=== PATIENT | female | born 1945 ===

== ENCOUNTER 2016-09-03 12:48 | Inpatient (IN) | payer MEDICAID, MEDICARE ==
[2016-09-03 12:48] VITALS: BMI 32.3
[2016-09-03 13:38] LABS: ADD MANUAL DIFF? NO
[2016-09-03 13:41] LABS: BASO # 0.04 K/mm3 (0.0-2.0); BASO % 0.5 % (0.0-3.0); EOS # 0.6 (0.0-0.7); EOS % 6.8 % (1.5-5.0); GRAN % 62.7 % (50.0-68.0); HEMATOCRIT 33.3 % (36.0-48.0); LYMPH # 1.6 (1.2-3.4); MEAN CELL VOLUME 80.4 fL (80.0-105.0); MEAN CORPUSCULAR HEMOGLOBIN 29.2 pg (25.0-35.0); MEAN CORPUSCULAR HGB CONC 36.3 g/dl (31.0-37.0); MEAN PLATELET VOLUME 10.2 fl (7.0-11.0); MONO # 0.8 (0.1-0.6); PLATELET COUNT 172 10^3/uL (120.0-450.0); RED CELL DISTRIBUTION WIDTH 12.6 % (11.5-14.5); WHITE BLOOD COUNT 8.1 10^3/ul (4.5-11.0)
[2016-09-03 13:52] LABS: ALB/GLOB RATIO 1.3 (1.1-1.8); ALKALINE PHOSPHATASE 65 U/L (38-133); ALT/SGPT 37 U/L (7-56); AST/SGOT 45 U/L (15-39); BILIRUBIN,TOTAL 0.8 mg/dL (0.2-1.3); BLOOD UREA NITROGEN 41 mg/dL (7-21); CALCIUM 9.5 mg/dL (8.4-10.5); CARBON DIOXIDE 24 mmol/L (21-33); CHLORIDE 83 mmol/L (98-107); GFR AFRICAN-AMERICAN 54; GLUCOSE,RANDOM 99 mg/dL (70-110); INR 1.03 (0.93-1.08); MAGNESIUM 1.7 mg/dL (1.7-2.2); PARTIAL THROMBOPLASTIN TIME 28.7 Seconds (23.7-30.8); POTASSIUM 4.2 mmol/L (3.6-5.0); TOTAL PROTEIN 8.1 g/dL (5.8-8.3)
[2016-09-03 13:59] LABS: SODIUM 118 mmol/L (132-148)
--- NOTE | 2016-09-03 14:00 | RAD ---
HISTORY: Weakness COMPARISON: 12/07/2015. FINDINGS: LUNGS: The lungs are clear. PLEURA: No significant pleural effusion identified, no pneumothorax apparent. CARDIOVASCULAR: Normal. OSSEOUS STRUCTURES: No significant abnormalities. VISUALIZED UPPER ABDOMEN: Normal. OTHER FINDINGS: None. IMPRESSION: No active pulmonary disease.
--- NOTE | 2016-09-03 14:02 | ED PDOC ---
Arrival/HPI - General Chief Complaint: Dizziness/Lightheaded Time Seen by Provider: 09/03/16 12:49 Historian: Patient - History of Present Illness Narrative History of Present Illness (Text): 09/03/16 13:06 A 70 year old female with a medical history of hypertension presents to the emergency department with severe right leg cramping, which began earlier today. Patient states she had diarrhea once today and has felt weak for last few days. She denies any headaches, abdominal pain, fever, or any other symptoms at this time. PMD: Dr. Jay Time/Duration: Prior to Arrival (Earlier today ) Symptom Onset: Sudden Symptom Course: Unchanged Activities at Onset: Rest Context: Home Past Medical History - Provider Review Nursing Documentation Reviewed: Yes - Infectious Disease Hx of Infectious Diseases: None - Tetanus Immunization Tetanus Immunization: Unknown - Cardiac Hx Cardiac Disorders: Yes Hx Hypertension: Yes Hx Pacemaker: No - Pulmonary Hx Respiratory Disorders: No - Neurological Hx Neurological Disorder: No Hx Paralysis: No - HEENT Hx HEENT Disorder: No - Renal Hx Renal Disorder: No - Endocrine/Metabolic Hx Endocrine Disorders: No - Hematological/Oncological Hx Blood Disorders: No Hx Blood Transfusions: No Hx Blood Transfusion Reaction: No - Integumentary Hx Dermatological Disorder: No - Musculoskeletal/Rheumatological Hx Musculoskeletal Disorders: No - Gastrointestinal Hx Gastrointestinal Disorders: No - Genitourinary/Gynecological Hx Genitourinary Disorders: No - Psychiatric Hx Psychophysiologic Disorder: No Hx Depression: No Hx Emotional Abuse: No Hx Physical Abuse: No Hx Substance Use: No - Surgical History Hx Hysterectomy: Yes - Anesthesia Hx Anesthesia: No Hx Anesthesia Reactions: No Hx Malignant Hyperthermia: No - Suicidal Assessment Feels Threatened In Home Enviroment: No Family/Social History - Physician Review Nursing Documentation Reviewed: Yes Family/Social History: Unknown Family HX Smoking Status: Never Smoked Hx Alcohol Use: No (SOCIAL) Hx Substance Use: No Allergies/Home Meds Allergies/Adverse Reactions: Allergies No Known Allergies Allergy (Verified 09/03/16 12:58) Home Medications: Home Meds Medication Instructions Recorded Confirmed diltiaZEM [Cardizem] 120 mg PO DAILY 12/19/15 12/19/15 Review of Systems - Physician Review All systems were reviewed & negative as marked: Yes - Review of Systems Constitutional: Other (general weakness ). absent: Fevers Eyes: Normal ENT: Normal Respiratory: absent: SOB Cardiovascular: absent: Chest Pain Gastrointestinal: Diarrhea. absent: Abdominal Pain, Nausea, Vomiting Musculoskeletal: Other (Right leg cramps ) Neurological: absent: Headache Physical Exam Vital Signs Temp Pulse Resp BP Pulse Ox 09/03/16 17:00 62 18 128/65 98 09/03/16 15:08 60 18 146/77 98 09/03/16 12:58 97.5 F L 59 L 16 142/92 H 95 Temperature: Afebrile Blood Pressure: Normal Pulse: Bradycardic Respiratory Rate: Normal Appearance: Positive for: Well-Appearing, Non-Toxic, Comfortable Pain Distress: None Mental Status: Positive for: Alert and Oriented X 3 Finger Stick Blood Glucose: 99 - Systems Exam Head: Present: Atraumatic, Normocephalic Pupils: Present: PERRL Extroacular Muscles: Present: EOMI Conjunctiva: Present: Normal Mouth: Present: Moist Mucous Membranes Neck: Present: Normal Range of Motion Respiratory/Chest: Present: Clear to Auscultation, Good Air Exchange. No: Respiratory Distress, Accessory Muscle Use Cardiovascular: Present: Regular Rate and Rhythm, Normal S1, S2. No: Murmurs Abdomen: Present: Normal Bowel Sounds. No: Tenderness, Distention, Peritoneal Signs Back: Present: Normal Inspection Upper Extremity: Present: Normal Inspection. No: Cyanosis, Edema Lower Extremity: Present: Normal Inspection. No: Edema Neurological: Present: GCS=15, CN II-XII Intact, Speech Normal Skin: Present: Warm, Dry, Normal Color. No: Rashes Psychiatric: Present: Alert, Oriented x 3, Normal Insight, Normal Concentration Medical Decision Making ED Course and Treatment: Impression: A 70 year old female complains of right leg cramps. Differential Diagnosis included but are not limited to: r/o metabolic, dvt, etiology Plan: -- EKG -- Chest X-ray -- Ultrasound of Right Lower Extremity -- Labs -- Sodium Chloride -- Reassess and disposition Prior Visits: Notes and results from previous visits were reviewed. Patient was last seen in the Emergency department on 12/19/15 for high blood pressure and discharged home. Progress Notes: EKG: Ordered, reviewed, and independently interpreted the EKG. Rate : 56 BPM Rhythm : NSR Interpretation : No ST/T wave changes Ultrasound Right Lower Left Extremity [employer] Installer : Uriel Cronin MD IMPRESSION: No sonographic evidence for deep venous thrombosis in the visualized segments of both lower extremities. Chest X-ray [employer] Pool Heating Installer: Dr. Dianna Hernandez MD IMPRESSION: No active pulmonary disease 09/03/16 14:38 Patient now states she is taking a herbal dietary supplement, ?diuretic Dr. yu accepts patient . dr reed bedside Recommends fluid bolus, repeat chemistry, if uptrending stable for tele. morphine dosed for leg cramps 09/03/16 15:17 09/03/16 17:24 repeat chem shows na 121. discussed with dr luong. not icu candidate. - Lab Interpretations Lab Results: 09/03/16 13:36 09/03/16 16:51 Lab Results 09/03/16 16:51: Sodium 121 L, Potassium 4.4, Chloride 88 L, Carbon Dioxide 22, Anion Gap 15, BUN 37 H, Creatinine 1.0, Est GFR ( Amer) > 60, Est GFR ( Non-Af Amer) 55, Random Glucose 97, Uric Acid 7.5 H, Calcium 9.1 09/03/16 16:15: Urine Osmolality 307, Ur Random Sodium 35 09/03/16 16:15: Urine Color Cancelled, Urine Appearance Cancelled, Urine pH Cancelled, Ur Specific [place] Cancelled, Urine Protein Cancelled, Urine Glucose (UA) Cancelled, Urine Ketones Cancelled, Urine Blood Cancelled, Urine Nitrate Cancelled, Urine Bilirubin Cancelled, Urine Urobilinogen Cancelled, Ur Leukocyte Esterase Cancelled 09/03/16 15:10: Urine Color Light yellow, Urine Appearance Clear, Urine pH 6.5, Ur Specific [place] 1.010, Urine Protein Trace H, Urine Glucose (UA) Negative, Urine Ketones Negative, Urine Blood Negative, Urine Nitrate Negative, Urine Bilirubin Negative, Urine Urobilinogen 0.2, Ur Leukocyte Esterase Trace H, Urine RBC Negative, Urine WBC 0 - 2, Ur Epithelial Cells 4 - 5, Urine Bacteria Mod 09/03/16 13:36: Serum Osmolality 263 L 09/03/16 13:36: Sodium 118 L*, Potassium 4.2, Chloride 83 L, Carbon Dioxide 24, Anion Gap 15, BUN 41 H, Creatinine 1.2, Est GFR ( Amer) 54, Est GFR (Non- Af Amer) 44, Random Glucose 99, Calcium 9.5, Magnesium 1.7, Total Bilirubin 0.8 , AST 45 H, ALT 37, Alkaline Phosphatase 65, Lactate Dehydrogenase 445, Total Creatine Kinase 358 H, CK-MB (CK-2) 0.4, CK-MB (CK-2) % Cancelled, Troponin I < 0.01, Total Protein 8.1, Albumin 4.6, Globulin 3.5, Albumin/Globulin Ratio 1.3 09/03/16 13:36: PT 11.1, INR 1.03, APTT 28.7 09/03/16 13:36: WBC 8.1, RBC 4.14, Hgb 12.1, Hct 33.3 L, MCV 80.4, MCH 29.2, MCHC 36.3, RDW 12.6, Plt Count 172, MPV 10.2, Gran % 62.7, Lymph % (Auto) 20.0 L , [place] % (Auto) 10.0 H, Eos % (Auto) 6.8 H, Baso % (Auto) 0.5, Gran # 5.10, Lymph # 1.6, [place] # 0.8 H, Eos # 0.6, Baso # 0.04 09/03/16 13:01: POC Glucose (mg/dL) 99 I have reviewed the lab results: Yes - RAD Interpretation Radiology Orders: 09/03/16 13:09 CHEST PORTABLE [RAD] Stat DUPLEX LOWER EXTRM VEIN BILAT [US] Stat - EKG Interpretation Interpreted by ED Physician: Yes Type: 12 lead EKG - Medication Orders Current Medication Orders: Sodium Chloride (Sodium Chloride 0.9%) 1,000 mls @ 100 mls/hr IV .Q10H YURIDIA Last Admin: 09/03/16 14:19 Dose: 100 mls/hr Discontinued Medications Sodium Chloride (Sodium Chloride 0.9%) 1,000 mls @ 999 mls/hr IV .Q1H1M STA Stop: 09/03/16 15:45 Last Admin: 09/03/16 15:03 Dose: 999 mls/hr Morphine Sulfate (Morphine) 4 mg IVP STAT STA Stop: 09/03/16 14:54 Last Admin: 09/03/16 15:03 Dose: 4 mg - Scribe Statement The provider has reviewed the documentation as recorded by the [employer] training under [facility] Provider Scribe Attestation: All medical record entries made by the Scribe were at my direction and personally dictated by me. I have reviewed the chart and agree that the record accurately reflects my personal performance of the history, physical exam, medical decision making, and the department course for this patient. I have also personally directed, reviewed, and agree with the discharge instructions and disposition. Disposition/Present on Arrival - Present on Arrival Any Indicators Present on Arrival: No History of DVT/PE: No History of Uncontrolled Diabetes: No Urinary Catheter: No History of Decub. Ulcer: No History Surgical Site Infection Following: None - Disposition Have Diagnosis and Disposition been Completed?: Yes Diagnosis: Hyponatremia Disposition: HOSPITALIZED Disposition Time: 17:42 Condition: STABLE Referrals: Prince Yu DO [Primary Care Provider] - Follow up with primary
[2016-09-03 14:05] LABS: TROPONIN I < 0.01 ng/mL
[2016-09-03] MEDS: Sodium Chloride 0.9% 1,000 ML IV SCH (14:19)
--- NOTE | 2016-09-03 14:37 | US ---
HISTORY: Leg pain and swelling. Evaluate for DVT PHYSICIAN(S): Uriel Lynn MD. TECHNIQUE: Duplex sonography and color-flow Doppler with graded compression were used to evaluate the deep venous systems of both lower extremities. FINDINGS: The visualized deep venous systems of both lower extremities are sonographically normal and compressible. Normal wave forms and augmentation are seen. There is no sonographic evidence for deep venous thrombosis in the visualized segments of both lower extremities. IMPRESSION: No sonographic evidence for deep venous thrombosis in the visualized segments of both lower extremities.
[2016-09-03] MEDS ORDERED: Sodium Chloride 0.9% 1,000 ML IV STA (14:45)
[2016-09-03] MEDS ORDERED: Morphine 4 mg/ml ISec IVP STA (14:53)
[2016-09-03 15:45] LABS: PH,URINE 6.5 (4.7-8.0); URINE BILIRUBIN NEGATIVE (NEGATIVE); URINE BLOOD NEGATIVE (NEGATIVE); URINE GLUCOSE (UA) NEGATIVE (NEGATIVE); URINE KETONE NEGATIVE (NEGATIVE); URINE LEUKOCYTE ESTERASE TRACE Leu/uL (NEGATIVE); URINE PROTEIN TRACE mg/dL (<30 mg/dL); URINE UROBILINOGEN 0.2 E.U./dL (<1 E.U./dL)
[2016-09-03 15:56] LABS: URINE APPEARANCE CLEAR (CLEAR); URINE COLOR LIGHT YELLOW (YELLOW)
--- NOTE | 2016-09-03 16:12 | CP.PCM.CON ---
History of Present Illness - History of Present Illness History of Present Illness: Initial Nephrology Consultation: Assessment: HTN (I 10) euvolemic hyponatremia: likely polydipsia related and contribution by diuretics ?? herbal supplement contribution ex smoker Plan monitor serum Na q 4 hrs. avoid increase in serum Na >6-8 meq/day. oral fluid restriction to 40 ounces/day check urine studies as urine Na, urine Osmol also check TSH, uric acid, serum osmol, lipid Hypertension control with meds as ordered. hold thiazide diuretics Further work up/management as per primary team pt advised to abstain from herbal supplements Thanks for allowing me to participate in care of your patient. Will follow patient with you. Please call if any Qs. d/w daughter bedside Dr Caleb Gonzales Office: [phone] Chief Complaint; leg cramps Reason for consult; hyponatremia HPI: Pt is a 70 y/o F with hx of HTN came with c/o Right leg cramps today. had 1 episode of loose stool this AM. was told that has some dehydration 10 days ago and she has been drinking increased water/fluid. approx 4 L/day. also says taking herbalife shakes to loose weight and has decreased appetite. takes diuretic as well. Quit smoking many years ago. drinks wine socially renal consult for low sodium 118 meq/L Denies chest pain, palpitation, shortness of breath, leg swelling Denies blood or bubbles in urine not on any psych meds. ROS: Constitutional Symptoms: Denies fever. No chills. trying to loose weight Eyes: denies change in vision, denies watery eyes, denies double vision Ears/Nose/Mouth/Throat: Denies Abnormal Taste. No Bad breath no Bad Taste. Cardiovascular: No chest pain. There is no shortness of breath. No palpitations. Pulmonary: No shortness of breath no cough. Gastrointestinal: denies abdominal pain No nausea. No vomiting. had loose stool today. Denies Bleeding Genitourinary: no need to strain when urinating. No increase in urinary frequency. No pain while urinating. Denies blood in urine. Neurological: Denies headaches. no dizziness. no loss of balance. Denies weakness, denies tingling/numbness Dermatological: No Rash or Bruising or ulcers. Psychiatric: Denies Anxiety. No depression. Denies hallucinations. Rheumatological: No joint pain. Denies Joint swelling had Rt leg cramps Endocrine: Denies tiredness/Fatigue denies Heat/Cold Intolerance. Physical Examination: General Appearance: Comfortable, in no acute respiratory distress, co-operative . Vitals reviewed and noted as below Head; Atraumatic, normocephalic ENT: no ulcers no thrush. Tongue is midline. Oropharynx: no rash or ulcers. EYES: Pupils are equal, round and reactive to light accommodation. Eye muscles and extraocular movement intact. Sclera is anicteric. Neck; supple no lymphadenopathy, no thyromegaly or bruit Lungs: Normal respiratory rate/effort. Breath sounds bilateral equal and clear Heart: Normal rate. s1s2 normal. No rub or gallop. Extremities: no edema. No varicose veins Neurological: Patient is alert, awake and oriented to person, place and time. No focal deficit. Strength bilateral appropriate and equal Skin: Warm and dry. Normal turgor. No rash. Palpitation: Normal elasticity for age Abdomen: Abdomen is soft. Bowel sounds +. There is no abdominal tenderness, no guarding/rigidity no organomegaly Psych: normal insight and normal affect/mood MSK: no joint tenderness or swelling. Digits and nails normal, no deformity : kidney or bladder not palpable Labs/imaging/EKG reviewed. Past medical history, past surgical history, family history, social history, allergy reviewed and noted as below Family hx: no hx of CKD. non-contributory Workup UA SG 1.010 CXR: WNL leg USG: no DVT Past Patient History - Infectious Disease Hx of Infectious Diseases: None - Tetanus Immunizations Tetanus Immunization: Unknown - Past Social History Smoking Status: Never Smoked - CARDIAC Hx Cardiac Disorders: Yes Hx Hypertension: Yes Hx Pacemaker: No - PULMONARY Hx Respiratory Disorders: No - NEUROLOGICAL Hx Neurological Disorder: No Hx Paralysis: No - HEENT Hx HEENT Problems: No - RENAL Hx Chronic Kidney Disease: No - ENDOCRINE/METABOLIC Hx Endocrine Disorders: No - HEMATOLOGICAL/ONCOLOGICAL Hx Blood Disorders: No Hx Blood Transfusions: No Hx Blood Transfusion Reaction: No - INTEGUMENTARY Hx Dermatological Problems: No - MUSCULOSKELETAL/RHEUMATOLOGICAL Hx Musculoskeletal Disorders: No - GASTROINTESTINAL Hx Gastrointestinal Disorders: No - GENITOURINARY/GYNECOLOGICAL Hx Genitourinary Disorders: No - PSYCHIATRIC Hx Psychophysiologic Disorder: No Hx Depression: No Hx Emotional Abuse: No Hx Physical Abuse: No Hx Substance Use: No - SURGICAL HISTORY Hx Hysterectomy: Yes - ANESTHESIA Hx Anesthesia: No Hx Anesthesia Reactions: No Hx Malignant Hyperthermia: No Meds Allergies/Adverse Reactions: Allergies Allergy/AdvReac Type Severity Reaction Status Date / Time No Known Allergies Allergy Verified 09/03/16 12:58 - Medications Medications: Current Medications Sodium Chloride (Sodium Chloride 0.9%) 1,000 mls @ 100 mls/hr IV .Q10H YURIDIA Last Admin: 09/03/16 14:19 Dose: 100 mls/hr Results - Vital Signs Recent Vital Signs: Last Vital Signs Temp 97.5 F L 09/03/16 12:58 Pulse 60 09/03/16 15:08 Resp 18 09/03/16 15:08 BP 146/77 09/03/16 15:08 Pulse Ox 98 09/03/16 15:08 - Labs Result Diagrams: 09/03/16 13:36 09/03/16 13:36 Labs: Laboratory Results - last 24 hr 09/03/16 09/03/16 09/03/16 13:01 13:36 13:36 WBC 8.1 RBC 4.14 Hgb 12.1 Hct 33.3 L MCV 80.4 MCH 29.2 MCHC 36.3 RDW 12.6 Plt Count 172 MPV 10.2 Gran % 62.7 Lymph % (Auto) 20.0 L [place] % (Auto) 10.0 H Eos % (Auto) 6.8 H Baso % (Auto) 0.5 Gran # 5.10 Lymph # 1.6 [place] # 0.8 H Eos # 0.6 Baso # 0.04 PT 11.1 INR 1.03 APTT 28.7 Sodium Potassium Chloride Carbon Dioxide Anion Gap BUN Creatinine Est GFR ( Amer) Est GFR (Non-Af Amer) POC Glucose (mg/dL) 99 Random Glucose Calcium Magnesium Total Bilirubin AST ALT Alkaline Phosphatase Lactate Dehydrogenase Total Creatine Kinase CK-MB (CK-2) CK-MB (CK-2) % Troponin I Total Protein Albumin Globulin Albumin/Globulin Ratio Urine Color Urine Appearance Urine pH Ur Specific [place] Urine Protein Urine Glucose (UA) Urine Ketones Urine Blood Urine Nitrate Urine Bilirubin Urine Urobilinogen Ur Leukocyte Esterase 09/03/16 09/03/16 13:36 15:10 WBC RBC Hgb Hct MCV MCH MCHC RDW Plt Count MPV Gran % Lymph % (Auto) [place] % (Auto) Eos % (Auto) Baso % (Auto) Gran # Lymph # [place] # Eos # Baso # PT INR APTT Sodium 118 L* Potassium 4.2 Chloride 83 L Carbon Dioxide 24 Anion Gap 15 BUN 41 H Creatinine 1.2 Est GFR ( Amer) 54 Est GFR (Non-Af Amer) 44 POC Glucose (mg/dL) Random Glucose 99 Calcium 9.5 Magnesium 1.7 Total Bilirubin 0.8 AST 45 H ALT 37 Alkaline Phosphatase 65 Lactate Dehydrogenase 445 Total Creatine Kinase 358 H CK-MB (CK-2) 0.4 CK-MB (CK-2) % Cancelled Troponin I < 0.01 Total Protein 8.1 Albumin 4.6 Globulin 3.5 Albumin/Globulin Ratio 1.3 Urine Color Light yellow Urine Appearance Clear Urine pH 6.5 Ur Specific [place] 1.010 Urine Protein Trace H Urine Glucose (UA) Negative Urine Ketones Negative Urine Blood Negative Urine Nitrate Negative Urine Bilirubin Negative Urine Urobilinogen 0.2 Ur Leukocyte Esterase Trace H
[2016-09-03 16:19] LABS: URINE BACTERIA MOD (NEG); URINE RBC NEGATIVE /hpf (0-2); URINE WBC 0 - 2 /hpf (0-6)
[2016-09-03 17:10] LABS: BLOOD UREA NITROGEN 37 mg/dL (7-21); CALCIUM 9.1 mg/dL (8.4-10.5); CARBON DIOXIDE 22 mmol/L (21-33); CHLORIDE 88 mmol/L (98-107); GFR AFRICAN-AMERICAN > 60; GLUCOSE,RANDOM 97 mg/dL (70-110); POTASSIUM 4.4 mmol/L (3.6-5.0); SODIUM 121 mmol/L (132-148); URIC ACID 7.5 mg/dL (2.5-6.2)
--- NOTE | 2016-09-03 17:28 | CON ---
DATE: 09/03/2016 HISTORY OF PRESENT ILLNESS: The patient seen and examined at bedside. She is a 70-year-old lady with history of hypertension, who was also using some herbal extracts to lose weight recently. She presented with severe right leg cramping , which began earlier today and was found to have hypochloremia and hyponatremia. The patient denies abdominal pain, headache pain, fever or any other symptoms at this time. PAST MEDICAL HISTORY: Hypertension. PAST SURGICAL HISTORY: Hysterectomy. SOCIAL HISTORY: No alcohol or illicit drug abuse. The patient is a lifelong nonsmoker. HOME MEDICATIONS: Cardizem, losartan. ALLERGIES: No known drug allergies. FAMILY HISTORY: Noncontributory. REVIEW OF SYSTEMS: Revealed 12 organ system other than mentioned in history of present illness is negative. PHYSICAL EXAMINATION: VITAL SIGNS: Temperature 97.5, heart rate 59, blood pressure 142/92, respiratory rate 16, oxygen saturation 95% on room air. ENT: Atraumatic. Mucosa dry LUNGS: Clear to auscultation bilaterally. HEART: Regular rate and rhythm. S1, S2 normal. ABDOMEN: Soft, nontender, nondistended. MUSCULOSKELETAL: No C/C/E. NEUROLOGIC: The patient moves extremities spontaneously. SKIN: dry. PSYCHIATRIC: The patient is alert and oriented x 3. LABORATORY DATA: Sodium 118, potassium 4.2, chloride 83, carbon dioxide 24, BUN 41, creatinine 1.2, glucose 99. AST 45, ALT 37. CPK 358. Troponin less than 0.01. WBC 8.1, hemoglobin 12.1, platelet count 172, troponin less than 0.01. Chest x-ray showed no acute cardiopulmonary disease. Her extremity ultrasound showed no sonographic evidence for deep venous thrombosis in the visualized segments of both lower extremities. ASSESSMENT AND PLAN: This is a 70-year-old lady, who presented with hypovolemic hyponatremia (hypochloremia, decreased skin turgor, decreased fluid intake). It appears that the muscle cramps that she has are related to substantial dehydration. I would proceed with crystalloids/ fluid resuscitation and maintaining sodium level above 120. I would repeat BMP once fluid bolus is given. I think that the muscle cramps are related to dehydration and hyponatremia, which is corrected with IV fluids. Urine osmolarity, plasma osmolarity, urine electrolytes should be checked. Nephrology consult would be indicated. I will defer decision about whether or not to rule out comorbidities that may cause hyponatremia to primary medical team, including but not limited to hypothyroidism, nephrotic syndrome, chronic liver disease and chronic heart failure--none of which however would represent hypovolemic hyponatriemia. Addendum: Na 121. Ok to go to tele with slow and gradual Na correction under nephrology service supervision ccm time 40 min Sb Victor MD cc: [id number] TT: 09/03/2016 17:28:01 Confirmation # [id number] Dictation # [id number] ln MTDD
--- NOTE | 2016-09-03 18:39 | HP ---
HISTORY OF PRESENT ILLNESS: I was called by the ER doctor and also the daughter that the patient was in the Emergency Room. She had lightheadedness and dizziness. She comes in with severe cramping of the right lower extremity that started earlier today and then she had diarrhea and came to the Emergency Room. PAST MEDICAL HISTORY: She has a past medical history of hypertension. PAST SURGICAL HISTORY: Had a hysterectomy. FAMILY HISTORY: Hypertension in the family. SOCIAL HISTORY: Never smoked, social drinker. No drugs. ALLERGIES: No known drug allergies. MEDICATIONS: She takes Cardizem 120 daily. REVIEW OF SYSTEMS: She was dizzy and weak. No acute vision changes or hearing changes, no sore throat, no shortness of breath, no chest pain, no palpitations , no cough. There is diarrhea. She has right leg cramps, severe. It is better now with IV fluids. No headache, no dizziness, no skin issues, just weak, not feeling well. PHYSICAL EXAMINATION: VITAL SIGNS: She has a 97.5 temp, 59 pulse, 16 respiratory rate, 142/92 blood pressure, 95% O2 sat on room air. HEENT: Head is atraumatic, normocephalic. Extraocular muscles are intact. Pupils equal, reactive to light and accommodation. Throat moist. NECK: Supple. Thyroid midline. No palpable lymphadenopathy appreciated. HEART: Regular rate. Normal S1, S2. LUNGS: Decreased breath sounds but clear to auscultation bilaterally. GENERAL: She is alert and oriented x 3. ABDOMEN: Soft, nontender, positive bowel sounds, no guarding, no rebound, no CVA tenderness. EXTREMITIES: Have no edema. NEUROLOGIC: GCS is 15. Cranial nerves II-XII grossly intact. Speech is normal. SKIN: Warm and dry. LABORATORY DATA: She is here with a white count of 8.1, hemoglobin 12.1, hematocrit 33.3 and platelets of 172. INR is 1.032. She has a 118 sodium, after aggressive IV fluids up to 121. She is going to go to telemetry. Potassium 4.4, BUN 37, creatinine when she came in. GFR was 44, now up to 55. Sugar is 97. Uric acid 7.5, high. Calcium is 9.1, magnesium 1.5. Total bili is 0.8, AST is 45, ALT is 37, alk phos 65. Lactate dehydrogenase 445. Troponin was less than 0.01, total protein is 8.1, albumin is 4.6, globulin 3.5. Urine is trace leukocytes, moderate bacteria. Urine sodium is 35. On x- ray, she had a chest x-ray; no active disease. ASSESSMENT AND PLAN: She was seen by the hot blast worker, who said no intensive care unit; go to the telemetry. She was seen by the kidney doctor, Dr. Gonzales. She is here for euvolemic hypovolemia, likely polydipsia. She was taking an herbal supplement contribution that could have caused this to be the problem. Will aggressively hydrate, check her labs tomorrow and let her eat. Hopefully, the sodium will come up. Continue to watch her blood pressure. Has urinary tract infection, low sodium, syncope, hypovolemia. Will give her some Rocephin for the urinary tract infection, 0.9 normal saline, check her labs tomorrow. Prince Yu DO cc: [id number] TT: 09/03/2016 18:38:43 ln MTDD
[2016-09-04] MEDS: Sodium Chloride 0.9% 1,000 ML IV SCH (00:25)
[2016-09-04 00:49] VITALS: O2SAT 98
[2016-09-04 05:07] LABS: CHOLESTEROL 131 mg/dL (130-200)
--- NOTE | 2016-09-04 08:34 | PN ---
DATE: 09/04/2016 She is resting comfortably in bed. The IV fluids are running. She is eating okay. She can walk to the bathroom okay. No more dizziness or lightheadedness. She is currently on Rocephin and IV fluids at 100 mL an hour. PHYSICAL EXAMINATION: VITAL SIGNS: Temp 97.8, 82 pulse, 140/68 blood pressure, 20 respiratory rate, 98% O2 sat on room air. HEAD: Atraumatic, normocephalic. HEART: Regular rate. LUNGS: Decreased breath sounds, but clear. ABDOMEN: Soft, nontender. Positive bowel sounds. EXTREMITIES: Have no edema. MEDICATIONS: She is on the Rocephin and the IV fluids. The Rocephin is for the UTI. She had low sodium. It was as low as 118. She dizziness, near syncope. LABORATORY DATA: She had a 127 sodium. It is getting closer, but not there yet. It is steadily getting better. Her TSH was low at 0.07. I will check another TSH tomorrow. She was never on anything for hyperthyroid or hypothyroid. I will check her TSH tomorrow, check her labs tomorrow. Hopefully, the sodium will improve, and we could probably discharge her tomorrow. So she will stay one more night, as the sodium slowly increases. She is here for hypovolemia, UTI, near syncope. Prince Yu DO cc: [id number] TT: 09/04/2016 08:33:37 Confirmation # [id number] Dictation # [id number] jn MTDD
[2016-09-04] MEDS: cefTRIAXone 1 gm 1 GM/100 ML BAG IVPB SCH (10:20)
--- NOTE | 2016-09-04 10:35 | CP.PCM.PN ---
Subjective - Date & Time of Evaluation Date of Evaluation: 09/04/16 Time of Evaluation: 10:29 - Subjective Subjective: Follow up Nephrology Consultation: Assessment: HTN (I 10) Hypo-osmolar hyponatremia: likely dehydration as evident by higher BUN/cr and high uric acid and contribution by diuretics ?? herbal supplement contribution: improved with IVF Suppressed TSH ex smoker Plan monitor serum Na q 4 hrs. avoid increase in serum Na >6-8 meq/day. will give D5W @ 100 ml/hr x 5 hrs to bring down Na to 124-126 range by afternoon. then will switch back to NS. Hypertension control with meds as ordered. Avoid thiazide diuretics Further work up/management as per primary team pt advised to abstain from herbal supplements Thanks for allowing me to participate in care of your patient. Will follow patient with you. Please call if any Qs. d/w Dr Gigi Gonzales Office: [phone] Reason for consult; hyponatremia HPI: Pt is a 70 y/o F with hx of HTN came with c/o Right leg cramps today. had 1 episode of loose stool this AM. was told that has some dehydration 10 days ago and also taking herbalife shakes to loose weight and has decreased appetite. takes some diuretic as well. Quit smoking many years ago. drinks wine socially renal consult for low sodium 118 meq/L ROS: Denies chest pain, palpitation, shortness of breath, leg swelling. no further leg cramps. She feels better Physical Examination: General Appearance: Comfortable, in no acute respiratory distress, co-operative . Vitals reviewed and noted as below Lungs: Normal respiratory rate/effort. Breath sounds bilateral equal and clear Heart: Normal rate. s1s2 normal. No rub or gallop. Extremities: no edema. No varicose veins Neurological: Patient is alert, awake and oriented to person, place and time. No focal deficit. Strength bilateral appropriate and equal Skin: Warm and dry. Normal turgor. No rash. Palpitation: Normal elasticity for age Abdomen: Abdomen is soft. Bowel sounds +. There is no abdominal tenderness, no guarding/rigidity no organomegaly Psych: normal insight and normal affect/mood MSK: no joint tenderness or swelling. Digits and nails normal, no deformity : kidney or bladder not palpable Labs/imaging/EKG reviewed. Past medical history, past surgical history, family history, social history, allergy reviewed Family hx: no hx of CKD. non-contributory Workup UA SG 1.010 urine Na 35 urine osmol 307 CXR: WNL leg USG: no DVT uric acid 7.5 TSH 0.07 Serum Osm 263 Objective - Vital Signs/Intake and Output Vital Signs (last 24 hours): Temp Pulse Resp BP Pulse Ox 97.8 F 56 L 20 140/68 98 09/04/16 06:00 09/04/16 06:00 09/04/16 06:00 09/04/16 06:00 09/04/16 06:00 Intake and Output: 09/04/16 09/04/16 06:59 18:59 Intake Total 0 Output Total 3 Balance -3 - Medications Medications: Current Medications Ceftriaxone Sodium (Rocephin 1 Gram Ivpb) 1 gm in 100 mls @ 100 mls/hr IVPB DAILY YURIDIA PRN Reason: Protocol Last Admin: 09/04/16 10:20 Dose: 100 mls/hr Dextrose (Dextrose 5% In Water) 500 mls @ 100 mls/hr IV .Q5H YURIDIA Stop: 09/04/16 14:31 Last Admin: 09/04/16 10:20 Dose: 100 mls/hr - Labs Labs: 09/04/16 08:00 PT 11.1 Seconds (9.9-11.8) 09/03/16 13:36 INR 1.03 (0.93-1.08) 09/03/16 13:36 APTT 28.7 Seconds (23.7-30.8) 09/03/16 13:36
[2016-09-04] MEDS: Metoprolol Succinate 25 mg XL Tab PO SCH ×2 (14:47→18:08)
--- NOTE | 2016-09-05 00:04 | CARD ---
APPROVED REPORT EKG Measurement Heart [id number] <Conclusion> Sinus bradycardia with 1st degree AV block Inferior infarct, age undetermined Abnormal ECG
[2016-09-05 07:08] LABS: ALB/GLOB RATIO 1.2 (1.1-1.8); BILIRUBIN,TOTAL 0.3 mg/dL (0.2-1.3); CALCIUM 9.4 mg/dL (8.4-10.5); HEMATOCRIT 33.6 % (36.0-48.0); MEAN CELL VOLUME 82.8 fL (80.0-105.0); MEAN CORPUSCULAR HEMOGLOBIN 29.6 pg (25.0-35.0); MEAN CORPUSCULAR HGB CONC 35.7 g/dl (31.0-37.0); MEAN PLATELET VOLUME 10.4 fl (7.0-11.0); POTASSIUM 4.1 mmol/L (3.6-5.0); RED CELL DISTRIBUTION WIDTH 13.2 % (11.5-14.5); TOTAL PROTEIN 7.8 g/dL (5.8-8.3); WHITE BLOOD COUNT 5.4 10^3/ul (4.5-11.0)
[2016-09-05] MEDS ORDERED: Magnesium Hydroxide Susp 30 ml UD PO ONE (08:18)
[2016-09-05] MEDS: Metoprolol Succinate 25 mg XL Tab PO SCH (10:02)
[2016-09-05] MEDS: cefTRIAXone 1 gm 1 GM/100 ML BAG IVPB SCH (10:03)
--- NOTE | 2016-09-05 10:11 | CON ---
DATE: 09/04/2016 This is a 70-year-old female with past medical history of hypertension and patient was using some her bal extract to lose weight and the patient had severe leg cramping and also found to be hyponatremic. Called to evaluate the patient. at bedside. PAST MEDICAL HISTORY: Of hypertension. PAST SURGICAL HISTORY: Of hysterectomy. SOCIAL HISTORY: Does not smoke. Does not drink. ALLERGIES: No known drug allergies. REVIEW OF SYSTEMS: A 10-point review of system was negative as noted above. PHYSICAL EXAMINATION: HEENT: Normocephalic, atraumatic. NECK: Supple. NEUROLOGIC: Alert, awake, oriented x 3. No aphasia. Cranial nerves II-XII were tested. Pupils equ ally reactive to light. EOM intact. Cerebellar: No facial Alvaro Ha MD cc: [id number] TT: 09/04/2016 19:34:16 Confirmation # [id number] Dictation # [id number] greta
--- NOTE | 2016-09-05 10:55 | CP.PCM.PCO ---
Assessment & Plan - Assessment and Plan (Free Text) Assessment: NEURO COMMUNICATION NOTE: DIZZINESS AND LEGS CRAMPS SECONDARY TO HYPONATREMIA AND DEHYDRATION. -C/W NEPHROLOGY MX FOR HYPONATREMIA AND PT EVALUATION. PLEASE RECONSULT NECESSARY. GRIFFIN RUSSELL.
--- NOTE | 2016-09-05 11:21 | CP.PCM.PN ---
Subjective - Date & Time of Evaluation Date of Evaluation: 09/05/16 Time of Evaluation: 11:19 - Subjective Subjective: Follow up Nephrology Consultation: Assessment: Improved HTN (I 10) Hypo-osmolar hyponatremia: likely dehydration as evident by higher BUN/cr and high uric acid and contribution by diuretics ?? herbal supplement contribution: improved with IVF Suppressed TSH ex smoker Plan serum Na today 131 Hypertension control with meds as ordered. Avoid thiazide diuretics Further work up/management as per primary team pt advised to abstain from herbal supplements Thanks for allowing me to participate in care of your patient. Please call if any Qs. d/w Dr Yu she can be d/c home today from renal perspective. f/up in office with me next thursday to repeat her Na Dr Caleb Gonzales Office: [phone] Reason for consult; hyponatremia HPI: Pt is a 70 y/o F with hx of HTN came with c/o Right leg cramps today. had 1 episode of loose stool this AM. was told that has some dehydration 10 days ago and also taking herbalife shakes to loose weight and has decreased appetite. takes some diuretic as well. Quit smoking many years ago. drinks wine socially renal consult for low sodium 118 meq/L ROS: Denies chest pain, palpitation, shortness of breath, leg swelling. no further leg cramps. She feels better Physical Examination: General Appearance: Comfortable, in no acute respiratory distress, co-operative . Vitals reviewed and noted as below Lungs: Normal respiratory rate/effort. Breath sounds bilateral equal and clear Heart: Normal rate. s1s2 normal. No rub or gallop. Extremities: no edema. No varicose veins Neurological: Patient is alert, awake and oriented to person, place and time. No focal deficit. Strength bilateral appropriate and equal Skin: Warm and dry. Normal turgor. No rash. Palpitation: Normal elasticity for age Abdomen: Abdomen is soft. Bowel sounds +. There is no abdominal tenderness, no guarding/rigidity no organomegaly Psych: normal insight and normal affect/mood MSK: no joint tenderness or swelling. Digits and nails normal, no deformity : kidney or bladder not palpable Labs/imaging/EKG reviewed. Past medical history, past surgical history, family history, social history, allergy reviewed Family hx: no hx of CKD. non-contributory Workup UA SG 1.010 urine Na 35 urine osmol 307 CXR: WNL leg USG: no DVT uric acid 7.5 TSH 0.07 Serum Osm 263 Objective - Vital Signs/Intake and Output Vital Signs (last 24 hours): Temp Pulse Resp BP Pulse Ox 98.9 F 64 20 134/60 98 09/05/16 06:00 09/05/16 10:02 09/05/16 06:00 09/05/16 10:02 09/05/16 06:00 Intake and Output: 09/05/16 09/05/16 06:59 18:59 Intake Total 720 Balance 720 - Medications Medications: Current Medications Diphenhydramine HCl (Benadryl) 25 mg PO HS PRN PRN Reason: Insomnia Last Admin: 09/04/16 22:28 Dose: 25 mg Ceftriaxone Sodium (Rocephin 1 Gram Ivpb) 1 gm in 100 mls @ 100 mls/hr IVPB DAILY YURIDIA PRN Reason: Protocol Last Admin: 09/05/16 10:03 Dose: 100 mls/hr Metoprolol Succinate (Toprol Xl) 12.5 mg PO BRK YURIDIA Last Admin: 09/05/16 10:02 Dose: 12.5 mg - Labs Labs: 09/05/16 06:15 09/05/16 06:15 PT 11.1 Seconds (9.9-11.8) 09/03/16 13:36 INR 1.03 (0.93-1.08) 09/03/16 13:36 APTT 28.7 Seconds (23.7-30.8) 09/03/16 13:36
--- NOTE | 2016-09-05 11:46 | DS ---
She slept well last night. She is feeling well. She is eating a nice big breakfast. She has got go od appetite, but she is constipated. I am going to give her milk of magnesia 30 mL 1 time dose this morning. My plan is to discharge her today. She is excited about that. PHYSICAL EXAMINATION: VITAL SIGNS: Temp 98.8, 58 pulse, 147/74 blood pressure, 20 respiratory rate, 98% O2 sat on room air . HEENT: Head is atraumatic, normocephalic. Throat is moist. NECK: Supple. HEART: Regular rate. LUNGS: Decreased breath sounds, but clear to auscultation. ABDOMEN: Soft, mildly obese. She has bowel sounds, may be full, could be constipated. EXTREMITIES: Have no edema. She gets constipation all the time she tells me. She is going to go home on Toprol, Macrobid. LABORATORIES: Show a 5.4 white count, 12 hemoglobin, 33.6 hematocrit with 169 platelets. Sodium 131 , it is great, 4.1 potassium, BUN 31, creatinine 1.1, better, GFR is 49, sugar is 89, calcium is 9.4, total bili is 0.3, AST is 35, ALT is 33, alk phos 59, total protein 7.8, albumin 4.3, globulin 3.5. Overall, she is doing better. She was here for low sodium, hypovolemia, urinary tract infection and I will see her in the office next week. She is discharged. Prince Yu DO cc: [id number] TT: 09/05/2016 11:45:59 en
[2016-09-05 14:01] VITALS: BP 162/84; PULSE 67; RESP 16; TEMP 97.4
== END 2016-09-05 15:53 | disposition home or self-care (01) | DRG 641 ==
LOC: ED 12:48 → ERH 17:13 → 2RNO 09-04 00:04
PROVIDERS: ADMIT Family Medicine; ATTEND Family Medicine
DX: E87.1 Hypo-osmolality and hyponatremia (principal); E86.0 Dehydration; N39.0 Urinary tract infection, site not specified; E86.1 Hypovolemia; I10 Essential (primary) hypertension; K59.00 Constipation, unspecified; R63.1 Polydipsia; Z90.710 Acquired absence of both cervix and uterus; Z87.891 Personal history of nicotine dependence; Z82.49 Family history of ischemic heart disease and other diseases of the circulatory system

== ENCOUNTER 2016-10-11 11:55 | Observation (INO) | payer OTHER ==
[2016-10-11 12:13] VITALS: BMI 29.6
[2016-10-11 13:10] LABS: BASO # 0.04 K/mm3 (0.0-2.0); BASO % 0.4 % (0.0-3.0); EOS # 0.6 (0.0-0.7); EOS % 5.9 % (1.5-5.0); GRAN % 65.3 % (50.0-68.0); HEMOGLOBIN 11.9 gm/dL (12.0-16.0); LYMPH # 1.9 (1.2-3.4); MEAN CORPUSCULAR HEMOGLOBIN 29.2 pg (25.0-35.0); MEAN CORPUSCULAR HGB CONC 34.8 g/dl (31.0-37.0); MEAN PLATELET VOLUME 10.4 fl (7.0-11.0); MONO # 1.2 (0.1-0.6); MONO % 11.4 % (1.0-6.0); PLATELET COUNT 177 10^3/uL (120.0-450.0); RBC 4.07 10^6/uL (3.5-6.1); RED CELL DISTRIBUTION WIDTH 13.1 % (11.5-14.5); WHITE BLOOD COUNT 10.9 10^3/ul (4.5-11.0)
[2016-10-11 13:33] LABS: ALB/GLOB RATIO 1.1 (1.1-1.8); ALBUMIN 4.7 g/dL (3.0-4.8); CALCIUM 9.1 mg/dL (8.4-10.5); URIC ACID 7.4 mg/dL (2.5-6.2)
--- NOTE | 2016-10-11 14:54 | ED PDOC ---
Arrival/HPI - General Historian: Patient - History of Present Illness Time/Duration: 1 week Symptom Course: Worsening Quality: Aching Severity Level: Mild <Lucy Salmeron - Last Filed: 10/11/16 17:00> <SolisreneaAdam - Last Filed: 10/12/16 07:33> - General Chief Complaint: Lower Extremity Problem/Injury Time Seen by Provider: 10/11/16 12:14 - History of Present Illness Narrative History of Present Illness (Text): 10/11/16 14:50 70-year-old female with a history of kidney disease and gout presents today with pain and swelling and erythema to the left foot. Patient states that she ate shrimp a week ago and the following day she woke up with pain and swelling to the left great toe. Patient states the pain has continued and the erythema has slightly worsened. Patient denies fevers or chills. No medications taken for pain at home. She denies numbness weakness or tingling in the extremity. No other complaints. (Lucy Salmeron) Past Medical History - Provider Review Nursing Documentation Reviewed: Yes - Travel History Have you recently traveled outside [place] w/in the past 3 mons?: No - Infectious Disease Hx of Infectious Diseases: None - Tetanus Immunization Tetanus Immunization: Unknown - Reproductive Menopause: Yes - Cardiac Hx Cardiac Disorders: Yes Hx Hypertension: Yes - Pulmonary Hx Respiratory Disorders: No - Neurological Hx Neurological Disorder: No - HEENT Hx HEENT Disorder: No - Renal Hx Renal Disorder: No - Endocrine/Metabolic Hx Endocrine Disorders: No - Hematological/Oncological Hx Blood Disorders: Yes Other/Comment: Gout - Integumentary Hx Dermatological Disorder: No - Musculoskeletal/Rheumatological Hx Musculoskeletal Disorders: No - Gastrointestinal Hx Gastrointestinal Disorders: No - Genitourinary/Gynecological Hx Genitourinary Disorders: No - Psychiatric Hx Psychophysiologic Disorder: No Hx Depression: No Hx Emotional Abuse: No Hx Physical Abuse: No Hx Substance Use: No - Surgical History Hx Hysterectomy: Yes - Anesthesia Hx Anesthesia: No Hx Anesthesia Reactions: No Hx Malignant Hyperthermia: No - Suicidal Assessment Feels Threatened In Home Enviroment: No <Lucy Salmeron - Last Filed: 10/11/16 17:00> Family/Social History - Physician Review Nursing Documentation Reviewed: Yes Family/Social History: Unknown Family HX Smoking Status: Former Smoker Hx Alcohol Use: No Hx Substance Use: No <MedhatironLucy Benedict - Last Filed: 10/11/16 17:00> Allergies/Home Meds <Kev Salmeronravi Benedict - Last Filed: 10/11/16 17:00> <Adam Cade - Last Filed: 10/12/16 07:33> Allergies/Adverse Reactions: Allergies No Known Allergies Allergy (Verified 10/11/16 12:13) Home Medications: Home Meds Medication Instructions Recorded Confirmed Losartan Potassium 100 mg PO DAILY 09/03/16 10/11/16 Nebivolol [Bystolic] 5 mg PO DAILY 09/03/16 10/11/16 Review of Systems - Review of Systems Constitutional: absent: Fatigue, Fevers Respiratory: absent: SOB, Cough Cardiovascular: absent: Chest Pain, Palpitations Gastrointestinal: absent: Abdominal Pain, Diarrhea, Nausea, Vomiting Musculoskeletal: Arthralgias (Left foot pain) Skin: Rash Neurological: absent: Headache, Dizziness Psychiatric: absent: Anxiety, Depression <Lucy Salmeron - Last Filed: 10/11/16 17:00> Physical Exam Vital Signs Reviewed: Yes Temperature: Afebrile Blood Pressure: Hypertensive Pulse: Regular Respiratory Rate: Normal Appearance: Positive for: Well-Appearing, Non-Toxic, Comfortable Pain Distress: None Mental Status: Positive for: Alert and Oriented X 3 - Systems Exam Head: Present: Atraumatic Mouth: Present: Moist Mucous Membranes Respiratory/Chest: Present: Clear to Auscultation, Good Air Exchange. No: Respiratory Distress, Accessory Muscle Use Cardiovascular: Present: Regular Rate and Rhythm, Normal S1, S2. No: Murmurs Upper Extremity: Present: Normal Inspection, Normal ROM Lower Extremity: Present: NORMAL PULSES, Normal ROM, Swelling, Erythema, Neurovascularly Intact, Capillary Refill < 2 s. No: CALF TENDERNESS, Tenderness (Left foot: There is tenderness noted over the dorsal aspect of the foot at the first MTP. There is erythema and slight edema extending along the dorsal aspect of the foot. Sensation and distal pulses intact Refill less than 2. ), Deformity Neurological: Present: GCS=15, Speech Normal Skin: Present: Warm, Dry Psychiatric: Present: Alert <Lucy Salmeron - Last Filed: 10/11/16 17:00> - PA / SILK SCREEN OPERATOR / Resident Statement MD/DO has reviewed & agrees with the documentation as recorded. <Adam Cade - Last Filed: 10/12/16 07:33> Disposition/Present on Arrival - Present on Arrival Any Indicators Present on Arrival: No History of DVT/PE: No History of Uncontrolled Diabetes: No Urinary Catheter: No History of Decub. Ulcer: No History Surgical Site Infection Following: None - Disposition Have Diagnosis and Disposition been Completed?: Yes Disposition Time: 15:00 Patient Plan: Admission <Lucy Salmeron - Last Filed: 10/11/16 17:00> <Adam Cade - Last Filed: 10/12/16 07:33> - Disposition Diagnosis: Cellulitis of foot, Hyponatremia Disposition: HOSPITALIZED Patient Problems: Current Active Problems Problem Status Onset Cellulitis of foot Acute Hyponatremia Acute Condition: FAIR
[2016-10-11] MEDS ORDERED: Vancomycin 1gm in NS 250ml 1 GM/250 ML BAG IVPB STA (15:09)
[2016-10-11] MEDS ORDERED: Sodium Chloride 0.45% 1,000 ML IV SCH (16:15)
--- NOTE | 2016-10-11 17:22 | RAD ---
PROCEDURE: Left Foot Radiographs. HISTORY: foot pain/swelling/erythema COMPARISON: None. FINDINGS: BONES: No acute fracture dislocation identified however multiple tiny lucencies appear relatively well-circumscribed at the bases of the 4th and 5th metatarsal bones as well as the distal portions of the cuboid and lateral cuneiform bones. These are likely benign. Consider follow-up nuclear bone scan for greater characterization. JOINTS: Moderate hallux valgus deformity SOFT TISSUES: Normal. OTHER FINDINGS: None. IMPRESSION: No acute fracture or dislocation. Cystic lesions at the midfoot as discussed above in the 3rd and 4th metatarsals and cuboid as well as medial cuneiform bone are identified for which follow-up nuclear bone scan is recommended.
[2016-10-11 18:34] VITALS: RESP 20
[2016-10-11] MEDS ORDERED: Pneumococcal 23-Valent Vaccine IM ONE (18:34)
[2016-10-12 07:04] VITALS: BP 134/74; PULSE 54; TEMP 97.8; O2SAT 96
[2016-10-12 07:09] LABS: ALB/GLOB RATIO 1.1 (1.1-1.8); ALBUMIN 3.9 g/dL (3.0-4.8); ALT/SGPT 24 U/L (7-56); AST/SGOT 33 U/L (15-39); BLOOD UREA NITROGEN 22 mg/dL (7-21); CALCIUM 9.1 mg/dL (8.4-10.5); GFR AFRICAN-AMERICAN > 60; GFR NON-AFRICAN AMERICAN 55
[2016-10-12 07:14] LABS: MEAN CELL VOLUME 83.6 fL (80.0-105.0); MEAN CORPUSCULAR HEMOGLOBIN 28.6 pg (25.0-35.0); MEAN CORPUSCULAR HGB CONC 34.2 g/dl (31.0-37.0); MEAN PLATELET VOLUME 10.5 fl (7.0-11.0); RBC 3.85 10^6/uL (3.5-6.1); RED CELL DISTRIBUTION WIDTH 12.9 % (11.5-14.5); WHITE BLOOD COUNT 6.4 10^3/ul (4.5-11.0)
--- NOTE | 2016-10-12 18:40 | HP ---
HISTORY OF PRESENT ILLNESS: I know the patient very well from office. She presented to the emergency room with a week feeling of worsening, aching of her left first toe. She has been eating shrimp lately and since then it has been bothering her. It became red and inflamed and had swelled up. She has not had since 10 years but she has not had shrimp in 10 years. PAST MEDICAL HISTORY: Hypertension, gout. She had hysterectomy. FAMILY HISTORY: No known family history. SOCIAL HISTORY: She is a former smoker. No alcohol. No drugs. ALLERGIES: NO KNOWN DRUG ALLERGIES. MEDICATIONS: She takes losartan, potassium, Bystolic for her blood pressure. REVIEW OF SYSTEMS: No vision change. No hearing changes. No sore throat. No neck pain. No chest pain. No palpitations. No shortness of breath. No coughing. No abdominal pain. No nausea, vomiting, constipation, or diarrhea. She is having a left foot first toe pain, redness and inflammation and swelling. PHYSICAL EXAMINATION: VITAL SIGNS: She has 98 temp, 60 pulse, 139/74 blood pressure, respiratory rate 20. She has 97% O2 sat on room air. HEENT: Head is atraumatic and normocephalic. Extraocular muscles are intact. Pupils equal, reactive to light. Throat is moist. No erythema. GENERAL: She is well appearing, nontoxic, comfortable, alert and oriented to x3. The left foot was giving her heart problems and pain. HEART: Regular rate. Normal S1 and S2. LUNGS: Decreased breath sounds, but clear to auscultation bilaterally. ABDOMEN: Soft and nontender. Positive bowel sounds. EXTREMITIES: There was left foot first toe redness, swelling, tenderness to palpation, difficult to move and put pressure on it, difficult to stand. NEUROLOGIC: GCS is 15. Speech is normal. Cranial nerves II through XII grossly intact. SKIN: Fine, except for the left first toe which is red and inflamed, it is tender. LABORATORY DATA: She had multiple tests done. She had 127 sodium, potassium 4.4, BUN 26, creatinine 1.1, GFR is 49. Sugar is 86, uric acid was high 7.4, calcium is 9.1, total bilirubin is 0.8. AST is 33, ALT is 31, alkaline phosphatase 74. Total protein is 8.9, albumin is 4.7, white count is10.9, hemoglobin is 11.9, hematocrit is 34.2, platelets are 177. She had an x-ray of the left foot which showed benign cystic lucencies, otherwise negative. I made her an inpatient, put her in for cellulitis, low sodium, possible renal insufficiency. We will give her IV 0.9. Her medicine, she had a dose of vancomycin and I added allopurinol. Prince Yu DO
--- NOTE | 2016-10-12 21:55 | CON ---
DATE: 10/12/2016 The patient was seen earlier today in room 360 and bed 1. CHIEF COMPLAINT: Leg infection and foot infection of the left leg from several days. HISTORY OF PRESENT ILLNESS: This is a 70-year-old [facility] who has history of gout and history of hypertension, cataract and history of cataract surgery, , hysterectomy. Has no known allergies who is admitted through the emergency room, was seen by Dr. Adam Cade. The patient had been complaining of left foot pain. Chief complaint was left foot pain and erythema and she had no fevers. No chills. No chest pain. She denied any trauma. PAST MEDICAL HISTORY: Significant for gout, hypertension and cataract. PAST SURGICAL HISTORY: Significant for , hysterectomy and cataract surgery. ALLERGIES: THE PATIENT HAS NO KNOWN ALLERGIES OF ANY ANTIBIOTICS. MEDICATIONS AT HOME: Include the patient to be on Bystolic and losartan. SOCIAL HISTORY: She has not been to [facility] for a year. No exposure to any animals. No pets. She is exposed to a dog rather, only one animal which is a dog. PHYSICAL EXAMINATION VITAL SIGNS: Temperature is 98, blood pressure is 130/70, respiratory rate of 20, and heart rate of 60. HEENT: Unremarkable. NECK: Supple. LUNGS: Decreased breath sounds. HEART: Normal S1 and S2. ABDOMEN: Soft and nontender. No rebound or guarding. EXTREMITIES: Examination of the left foot reveals mild erythema. No tenderness on big toe and no focal tenderness, mild erythema on the dorsal aspect of the left foot. Pulses are intact. Motor function is 5/5. LABORATORY DATA: Reveals a white count of 10.9, hemoglobin of 11 and platelets of 177. Chemistries reveals a creatinine as 1.1, BUN of 26 and sodium of 127. ASSESSMENT AND PLAN: This is a 70[facility] with gout, hypertension, and cataract who was admitted with what appears to be with a left foot erythema and pain with also renal insufficiency with glomerular filtration rate of 55. The patient does have an elevated uric acid of 7.4 and we will treat the patient with Teflaro with the left foot cellulitis and appears the patient states that the erythema has improved with antibiotics received thus far. We will order a sedimentation rate and C-reactive protein. We will treat the patient with Teflaro and follow the patient clinically. Should have podiatry on consult and renal consult has been requested. The patient's x-ray of the foot has been done which showed no acute changes. There is cystic lesion in the mid foot. Should have podiatry on consultation. We will follow closely with you. Srini Paez MD
[2016-10-12] MEDS ORDERED: Ceftaroline 600 MG in Sodium Chloride 0.9% 100 ML IVPB SCH (22:00)
--- NOTE | 2016-10-13 05:48 | DS ---
CHIEF COMPLAINT: "I came to see you this morning." HISTORY OF PRESENT ILLNESS: She was admitted with cellulitis of the toe yesterday which is red, inflamed and tender. She had a dose of allopurinol last night besides vancomycin and IV fluids. She is doing great this morning. Her toe is back to normal. She can stand on it. She can move it. It is not red at all and not swollen at all. I believe this was a gout attack. I am going to discharge her today and change her to observation. She will go home on Bystolic, Cozaar, and allopurinol. I do not think she needs any antibiotics at this time. She will follow up with me in the office in two weeks. I believe this is all gout. PHYSICAL EXAMINATION: VITAL SIGNS: Temperature 97.8, pulse 54, blood pressure 134/74, respiratory rate 20, and 96% saturation on room air. HEENT: Head normocephalic and atraumatic. HEART: Regular rate. LUNGS: Clear to auscultation. ABDOMEN: Soft. EXTREMITIES: No edema, no redness. Good range of motion. Normal feet. She feels back to normal. LABS: She had a 6.4 white count, hemoglobin 11, hematocrit 32.2, platelets 160. Sodium 131, almost normal. Potassium 4.3. BUN is 22. Creatinine is 1. T4 is 55. Sugar is 81, calcium is 9.1, total bili is 0.6, AST is 33, ALT is 24, alkaline phosphatase 52. Albumin is 3.9. MEDICATIONS: She will go home on allopurinol and her medications. She will be seen in the office this week. She will follow up on an outpatient basis here for gout changes to observation status. Prince Yu DO
== END 2016-10-12 12:17 | disposition home or self-care (01) ==
LOC: ED 11:55 → ERH 15:17 → INTOOBSV 15:17 → ERH 15:55 → 3RNO 17:02
PROVIDERS: ADMIT Family Medicine; ATTEND Family Medicine
DX: L03.116 Cellulitis of left lower limb (principal); N28.9 Disorder of kidney and ureter, unspecified; M10.9 Gout, unspecified; I10 Essential (primary) hypertension; E87.1 Hypo-osmolality and hyponatremia; Z87.891 Personal history of nicotine dependence; Z98.49 Cataract extraction status, unspecified eye
CPT/HCPCS: 36415; 73630; 80053; 84550; 85025; 85027; 85651; 86140; 87040; 99285; G0378; J7030

== ENCOUNTER 2017-10-07 18:05 | Emergency (ER) | payer MEDICARE, OTHER ==
[2017-10-07 18:05] VITALS: BMI 29.6
--- NOTE | 2017-10-07 18:32 | ED PDOC ---
Arrival/HPI - General Historian: Patient - History of Present Illness Time/Duration: 1-3 hours Symptom Onset: Sudden Symptom Course: Resolved Activities at Onset: Light Context: Sitting <Nelson Danielle - Last Filed: 10/07/17 20:35> <Iker Quigley DO - Last Filed: 10/07/17 22:44> - General Time Seen by Provider: 10/07/17 18:10 - History of Present Illness Narrative History of Present Illness (Text): 10/07/17 18:29 This is a 71 year old female with PMH of HT and gout presenting to the ED for chest pain that began one hour. Patient was sitting and felt chest pain located centrally along the chest near the sternum. Pain is non radiating, intermittant , 5/10 at worst and pain worsens with touch. She has no associated symptoms. She denies SOB, fevers, chills, nausea, urinary complaints, blood in the stool or urine, headaches, back pain and recent sickness. PMD is Dr. Yu (Nelson Danielle) Past Medical History - Provider Review Nursing Documentation Reviewed: Yes - Infectious Disease Hx of Infectious Diseases: None - Tetanus Immunization Tetanus Immunization: Unknown - Cardiac Hx Cardiac Disorders: Yes Hx Hypertension: Yes - Pulmonary Hx Respiratory Disorders: No - Neurological Hx Neurological Disorder: Yes Hx Dizziness: Yes - HEENT Hx HEENT Disorder: Yes Hx Cataracts: Yes - Renal Hx Renal Disorder: No - Endocrine/Metabolic Hx Endocrine Disorders: No - Hematological/Oncological Hx Blood Disorders: Yes Other/Comment: Gout - Integumentary Hx Dermatological Disorder: No - Musculoskeletal/Rheumatological Hx Musculoskeletal Disorders: Yes Hx Falls: No Hx Gout: Yes - Gastrointestinal Hx Gastrointestinal Disorders: Yes Hx Constipation: Yes - Genitourinary/Gynecological Hx Genitourinary Disorders: Yes Hx Urinary Tract Infection: Yes - Psychiatric Hx Psychophysiologic Disorder: No Hx Substance Use: No - Surgical History Hx Hysterectomy: Yes - Anesthesia Hx Anesthesia: No Hx Anesthesia Reactions: No Hx Malignant Hyperthermia: No - Suicidal Assessment Feels Threatened In Home Enviroment: No <Nelson Danielle - Last Filed: 10/07/17 20:35> Family/Social History - Physician Review Nursing Documentation Reviewed: Yes Family/Social History: Unknown Family HX Smoking Status: Former Smoker Hx Alcohol Use: No Hx Substance Use: No <Nelson Danielle - Last Filed: 10/07/17 20:35> Allergies/Home Meds <Nelson Danielle - Last Filed: 10/07/17 20:35> <Iker Quigley DO - Last Filed: 10/07/17 22:44> Allergies/Adverse Reactions: Allergies No Known Allergies Allergy (Verified 10/07/17 18:12) Home Medications: Home Meds Medication Instructions Recorded Confirmed Aspirin [Adult Low Dose Aspirin EC] 81 mg PO DAILY 10/07/17 10/07/17 Calcium Carbonate/Vitamin D3 1 tab PO BID 10/07/17 10/07/17 [Oysco 500-Vit D3 200 Tablet] Nebivolol [Bystolic] 10 mg PO DAILY 10/07/17 10/07/17 amLODIPine [Norvasc] 5 mg PO DAILY 10/07/17 10/07/17 Review of Systems - Physician Review All systems were reviewed & negative as marked: Yes - Review of Systems Constitutional: Normal. absent: Fevers Eyes: Normal. absent: Vision Changes ENT: Normal. absent: Hearing Changes Respiratory: Normal. absent: SOB, Cough Cardiovascular: Chest Pain. absent: Palpitations, Edema, Orthopnea, Syncope Gastrointestinal: Normal. absent: Abdominal Pain, Constipation, Diarrhea, Nausea, Vomiting, Hematochezia, Hematemesis Genitourinary Female: Normal. absent: Dysuria, Frequency, Hematuria Musculoskeletal: Normal Skin: Normal Neurological: Normal. absent: Headache Endocrine: Normal. absent: Diaphoresis <Nelson Danielle - Last Filed: 10/07/17 20:35> Physical Exam Vital Signs Reviewed: Yes Temperature: Afebrile Blood Pressure: Normal Pulse: Regular Respiratory Rate: Normal Appearance: Positive for: Well-Appearing, Non-Toxic, Comfortable Pain Distress: None Mental Status: Positive for: Alert and Oriented X 3 - Systems Exam Head: Present: Atraumatic, Normocephalic Pupils: Present: PERRL Extroacular Muscles: Present: EOMI Conjunctiva: Present: Normal Mouth: Present: Moist Mucous Membranes Neck: Present: Normal Range of Motion Respiratory/Chest: Present: Clear to Auscultation, Good Air Exchange. No: Respiratory Distress, Accessory Muscle Use, Wheezes Cardiovascular: Present: Regular Rate and Rhythm, Normal S1, S2, Peripheal Pulses Present. No: Murmurs Abdomen: Present: Normal Bowel Sounds. No: Tenderness, Distention, Peritoneal Signs, Rebound, Guarding Back: Present: Normal Inspection Upper Extremity: Present: Normal Inspection. No: Cyanosis, Edema Lower Extremity: Present: Normal Inspection. No: Edema Neurological: Present: Speech Normal, Motor Func Grossly Intact, Normal Sensory Function Skin: Present: Warm, Dry, Normal Color. No: Rashes Psychiatric: Present: Alert, Normal Insight, Normal Concentration <Nelson Danielle - Last Filed: 10/07/17 20:35> Vital Signs Pulse Resp BP Pulse Ox 10/07/17 20:15 68 18 137/69 98 Medical Decision Making <Nelson Danielle - Last Filed: 10/07/17 20:35> <Iker Quigley DO - Last Filed: 10/07/17 22:44> ED Course and Treatment: 10/07/17 18:33 Impression: This is a 71 year old female with PMH of HT and gout presenting to the ED for chest pain that began one hour. Differential not limited to: Costrochondritis vs angina vs GERD Plan: -blood work -EKG -troponins -CXRAY -ibuprofen Progress: 10/07/17 18:35 EKG: rate of 72bpm and NSR. 10/07/17 20:07 Patient is resting comfortably, vitals are stable and afebrile. Patient has no current symptoms. Patient is stable for discharge and has no complaints. She expressed consent and agrees with discharge. (Nelson Danielle) - Lab Interpretations Lab Results: 10/07/17 18:50 10/07/17 18:50 Lab Results 10/07/17 18:50: Sodium 135, Potassium 4.0, Chloride 100, Carbon Dioxide 21, Anion Gap 18, BUN 43 H, Creatinine 1.4 H, Est GFR ( Amer) 45, Est GFR ( Non-Af Amer) 37, Random Glucose 120 H, Calcium 8.9, Magnesium 1.9, Total Bilirubin 0.2, AST 28, ALT 20, Alkaline Phosphatase 102, Lactate Dehydrogenase 458, Total Creatine Kinase 102, Troponin I < 0.01, Total Protein 8.1, Albumin 4.3, Globulin 3.8, Albumin/Globulin Ratio 1.1 10/07/17 18:50: WBC 8.2 D, RBC 3.69, Hgb 10.9 L, Hct 31.7 L, MCV 85.9, MCH 29.5 , MCHC 34.4, RDW 14.5, Plt Count 186, MPV 10.4, Gran % 55.4, Lymph % (Auto) 31.3 , Bee % (Auto) 6.7 H, Eos % (Auto) 6.1 H, Baso % (Auto) 0.5, Gran # 4.56, Lymph # (Auto) 2.6, Bee # (Auto) 0.6, Eos # (Auto) 0.5, Baso # (Auto) 0.04 - RAD Interpretation Radiology Orders: 10/07/17 18:23 CHEST PORTABLE [RAD] Stat - Medication Orders Current Medication Orders: Discontinued Medications Ibuprofen (Motrin Tab) 600 mg PO STAT STA Stop: 10/07/17 18:27 Last Admin: 10/07/17 19:30 Dose: 600 mg MAR Pain/Vitals Document 10/07/17 19:30 JOL (Rec: 10/07/17 19:47 JOL [id number]) Pain Reassessment Is This A Pain ReAssessment? No Sleep Is patient sleeping during reassessment? No Presence of Pain Presence of Pain No Pain Scale Used Pain Scale Used Numeric Location Pain Location Body Site Chest Intensity 5 - PA / BEE RAISER / Resident Statement SB has reviewed & agrees with the documentation as recorded. SB has examined the patient and agrees with the treatment plan. <Nelson Danielle - Last Filed: 10/07/17 20:35> Disposition/Present on Arrival - Present on Arrival History of DVT/PE: No History of Uncontrolled Diabetes: No Urinary Catheter: No History of Decub. Ulcer: No History Surgical Site Infection Following: None <Nelson Danielle - Last Filed: 10/07/17 20:35> - Present on Arrival Any Indicators Present on Arrival: No - Disposition Have Diagnosis and Disposition been Completed?: Yes Disposition Time: 19:35 <Iker Quigley DO - Last Filed: 10/07/17 22:44> - Disposition Diagnosis: Musculoskeletal pain Disposition: HOME/ ROUTINE Condition: GOOD Discharge Instructions (ExitCare): Muscle and Bone Pain (DC) Additional Instructions: ALEJO FLOOD, thank you for letting us take care of you today. The emergency medical care you received today was directed at your acute symptoms. If you were prescribed any medication, please fill it and take as directed. It may take several days for your symptoms to resolve. Return to the Emergency Department if your symptoms worsen, do not improve, or if you have any other problems. Please contact your doctor or call one of the physicians/clinics you have been referred to that are listed on the Patient Visit Information form that is included in your discharge packet. Bring any paperwork you were given at discharge with you along with any medications you are taking to your follow up visit. Our treatment cannot replace ongoing medical care by a primary care provider outside of the emergency department. Thank you for allowing the [facility] team to be part of your care today. Follow up with Dr. Yu in 2-3 days for re-evaluation and further management. Return to the emergency room if you have any concerns. Referrals: Prince Yu DO [Staff Provider] - Follow up with primary Forms: [employer] (Kiswahili)
[2017-10-07 18:59] LABS: BASO # 0.04 K/mm3 (0.0-2.0); BASO % 0.5 % (0.0-3.0); EOS # 0.5 (0.0-0.7); EOS % 6.1 % (1.5-5.0); GRAN # 4.56 (1.4-6.5); GRAN % 55.4 % (50.0-68.0); HEMOGLOBIN 10.9 g/dL (12.0-16.0); LYMPH # 2.6 (1.2-3.4); LYMPH % 31.3 % (22.0-35.0); MEAN CELL VOLUME 85.9 fl (80.0-105.0); MEAN CORPUSCULAR HEMOGLOBIN 29.5 pg (25.0-35.0); MEAN CORPUSCULAR HGB CONC 34.4 g/dl (31.0-37.0); MEAN PLATELET VOLUME 10.4 fl (7.0-11.0); MONO # 0.6 (0.1-0.6); MONO % 6.7 % (1.0-6.0); RBC 3.69 10^6/uL (3.5-6.1); RED CELL DISTRIBUTION WIDTH 14.5 % (11.5-14.5); WHITE BLOOD COUNT 8.2 10^3/ul (4.5-11.0)
[2017-10-07 19:24] LABS: ALB/GLOB RATIO 1.1 (1.1-1.8); ALBUMIN 4.3 g/dL (3.0-4.8); ALT/SGPT 20 U/L (7-56); AST/SGOT 28 U/L (14-36); BLOOD UREA NITROGEN 43 mg/dL (7-21); CALCIUM 8.9 mg/dL (8.4-10.5); GFR AFRICAN-AMERICAN 45; GFR NON-AFRICAN AMERICAN 37
[2017-10-07 19:35] LABS: TROPONIN I < 0.01 ng/mL
[2017-10-07 20:13] VITALS: BP 137/69; PULSE 68; RESP 18; O2SAT 98
--- NOTE | 2017-10-08 09:07 | RAD ---
Date of service: 10/07/2017 HISTORY: chest pain COMPARISON: 09/03/2016 FINDINGS: LUNGS: No active pulmonary disease. PLEURA: No significant pleural effusion identified, no pneumothorax apparent. CARDIOVASCULAR: Normal. OSSEOUS STRUCTURES: No significant abnormalities. VISUALIZED UPPER ABDOMEN: Normal. OTHER FINDINGS: None. IMPRESSION: No active disease.
--- NOTE | 2017-10-08 19:05 | CARD ---
APPROVED REPORT Date of service: 10/07/2017 EKG Measurement Heart [id number] <Conclusion> Normal sinus rhythm Inferior infarct, age undetermined Abnormal ECG
== END 2017-10-07 20:15 | disposition home or self-care (01) ==
LOC: ED 18:05
DX: M79.1 Myalgia (principal); I10 Essential (primary) hypertension; Z87.891 Personal history of nicotine dependence

== ENCOUNTER 2018-06-07 10:29 | Outpatient (CLI) | payer MEDICARE | END 2018-06-07 10:30 | disposition home or self-care (01) | LOC: LAB 10:29 | DX: M35.9 Systemic involvement of connective tissue, unspecified (principal); M05.79 Rheumatoid arthritis with rheumatoid factor of multiple sites without organ or systems involvement ==

== ENCOUNTER 2018-06-23 08:20 | Day surgery (SDC) | payer MEDICARE, MEDICAID ==
[2018-06-21 15:05] VITALS: BMI 28.3
[2018-06-23 08:52] VITALS: RESP 14
[2018-06-23] MEDS ORDERED: Propofol 10 mg/ml Inj (20 ML) ONE (09:15)
[2018-06-23] MEDS ORDERED: Midazolam 2 MG/2 ML VIAL ONE (09:16)
[2018-06-23] MEDS ORDERED: Sodium Chloride 0.9% 1,000 ML IV SCH (10:30)
[2018-06-23 11:26] VITALS: TEMP 98; O2SAT 100
[2018-06-23 11:35] VITALS: BP 135/67; PULSE 73
== END 2018-06-23 12:00 | disposition home or self-care (01) ==
LOC: ENDO 08:20
PROVIDERS: ATTEND Specialist
DX: K21.0 Gastro-esophageal reflux disease with esophagitis (principal); Z12.11 Encounter for screening for malignant neoplasm of colon; K25.9 Gastric ulcer, unspecified as acute or chronic, without hemorrhage or perforation; D12.4 Benign neoplasm of descending colon; K57.30 Diverticulosis of large intestine without perforation or abscess without bleeding; K29.50 Unspecified chronic gastritis without bleeding; K64.8 Other hemorrhoids
CPT/HCPCS: 43239; 45385; 88305; 88312; 88342; J2001; J2250; J2704; J7030; J7040